=== PATIENT | female | born 1980 | race Caucasian/White ===

== ENCOUNTER 2019-12-08 08:12 | Emergency (ER) | payer BC ==
[2019-12-08 08:16] VITALS: BP 113/67; PULSE 80; TEMP 98.5; BMI 28.1
[2019-12-08] MEDS ORDERED: ONDANSETRON *ODT* 4 MG TABLET SL ONE (08:47)
[2019-12-08] MEDS ORDERED: ONDANSETRON *ODT* 4 MG TABLET ONE (08:52)
--- NOTE | 2019-12-08 08:55 | PDOC ---
History of Present Illness - General Chief Complaint: Respiratory Stated Complaint: NAUSEAS Time Seen by Provider: 12/08/19 08:21 History Source: Patient Exam Limitations: No Limitations - History of Present Illness Initial Comments: 12/08/19 08:50 Pt is a 39 y/o female who presents to the ED with complaint of Right medial thigh throbbing "every 5 seconds" since 5 am and subsequent nausea since 7 am. The patient states that the throbbing has since resolved upon coming to the ED. She denies any recent long travel, OCP or other contraceptive use, cigarette smoking or cancer history. She states that she has also had a URI for the last 2 days. She admits to having a fever yesterday but no fevers today. She does admit to having a slight decrease in her appetite. She has not taken anything for her symptoms. She denies any past medical history of allergies to medications. Past History - Past Medical History Allergies/Adverse Reactions: Allergies Allergy/AdvReac Type Severity Reaction Status Date / Time No Known Allergies Allergy Verified 12/08/19 08:16 Home Medications: Ambulatory Orders NK [No Known Home Medication] 12/08/19 Cardiac Disorders: Yes (MVP) COPD: No GI Disorders: Yes (PANCREATITIS) Disorders: Yes (FIBROIDS, DERMOID) - Psycho Social/Smoking Cessation Hx Smoking Status: No Smoking History: Never smoked Number of Cigarettes Smoked Daily: 0 Review of Systems - Review of Systems Comments:: 12/08/19 08:58 - Review of Systems Able to Perform ROS?: Yes Constitutional: No: Chills, Loss of Appetite, Night Sweats, Weakness, Positive Fever yesterday HEENTM: No: Eye Pain, Vision changes, Ear Pain, Throat Pain, Throat Swelling, Mouth Pain, Difficulty Swallowing Respiratory: No: Shortness of Breath, Wheezing, Sputum Production, Positive Cough Cardiac (ROS): No: Chest Pain, Chest Tightness, Palpitations, Irregular Heart Beat, Edema ABD/GI: No: Vomiting, Abdominal Pain, Diarrhea, Positive: Nausea : No Dysuria, No Hematuria, No Frequency, No Urgency Musculoskeletal: No: Back Pain, Joint Pain, Muscle Weakness, Neck Pain, Positive : Muscle Pain Integumentary: No: Lesions, Rash Neurological: No: Headache, Numbness, Tingling, Weakness, Speech Difficulties *Physical Exam - Vital Signs Last Vital Signs Temp Pulse Resp BP Pulse Ox 98.5 F 80 18 113/67 97 12/08/19 08:13 12/08/19 08:13 12/08/19 08:13 12/08/19 08:13 12/08/19 08:13 - Physical Exam 12/08/19 08:59 - Physical Exam General Appearance: Nourished, Appropriately Dressed, No Distress HEENT: EOMI, Normal Voice, No Pharyngeal Erythema, No Muffled/Hoarse voice, No Tonsillar Exudate, No Tonsillar Erythema, No Nasal Congestion, No Rhinorrhea, Hearing Grossly Normal, TMs Normal, No TM Bulging, No TM Dullness, No TM Erythema Neck: Supple, No Lymphadenopathy (R), No Lymphadenopathy (L), No Rigidity, No Decreased range of motion Respiratory/Chest: Lungs Clear, Normal Breath Sounds. No Respiratory Distress, No Accessory Muscle Use; Wet sounding cough appreciated in the ED. Good air entry bilaterally without any adventitious lung sounds Cardiovascular: Regular Rhythm, Regular Rate, S1, S2 Gastrointestinal/Abdominal: Normal Bowel Sounds, Soft. Non-tender, No Guarding , No Rebound, No Rigidity Musculoskeletal: Normal Inspection. No Decreased Range of Motion; Right medial thigh or diffuse leg without any tenderness to palpation. No discrepancy in leg size compared to the left. No gross bony deformity appreciated. Full range of motion of the right hip, knee and ankle. Extremity: Normal Capillary Refill, Normal Inspection Integumentary: Normal Color, Dry. 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 She is also complaining of mild nausea which is resolving already. Plan: -I have made the patient aware that her muscle aches may be likely to slight dehydration. -Zofran ODT in the ED -Fluid challenge -Will reassess 12/08/19 09:29 The patient states that she is feeling much better after the Zofran and some p.o. fluids in the ED. She has been made aware that her symptoms were likely secondary to muscle cramps from slight dehydration. She should increase her fluids and get plenty of rest. She will follow-up with her primary doctor within 1 to 2 days for repeat evaluation. She understands and agrees with this treatment plan and she is stable for discharge. Discharge - Discharge Information Problems reviewed: Yes Clinical Impression/Diagnosis: Resolved muscle cramps, Nausea alone Condition: Stable Disposition: HOME - Follow up/Referral Referrals: Grazyna Rizvi MD [Primary Care Provider] - 3 days - Patient Discharge Instructions Patient Printed Discharge Instructions: Nocturnal Leg Cramps, DI for Nausea -- Adult Additional Instructions: Drink plenty of fluids and get plenty of rest. You may want to consider eating a banana a day to help with possible electrolyte imbalance. Follow-up with your primary doctor within 1 to 2 days for repeat evaluation. - Post Discharge Activity
== END 2019-12-08 09:45 | disposition home or self-care (01) ==
LOC: JERFT 08:12
DX: R25.2 Cramp and spasm (principal); R11.0 Nausea; I34.1 Nonrheumatic mitral (valve) prolapse; Z86.2 Personal history of diseases of the blood and blood-forming organs and certain disorders involving the immune mechanism
CPT/HCPCS: 99283-25; Q0162

== ENCOUNTER 2020-05-03 03:54 | Emergency (ER) | payer BC ==
[2020-05-03 03:58] VITALS: BP 143/96; PULSE 89; TEMP 98.1; BMI 28.1
--- NOTE | 2020-05-03 04:09 | PDOC ---
History of Present Illness - General Chief Complaint: Redness To Affected Area Stated Complaint: REDNESS TO FINGER Time Seen by Provider: 05/03/20 03:57 - History of Present Illness Initial Comments: 05/03/20 04:05 39 F with no PMH presents to ED with pain and swelling to L middle finger. Pt had manicure done by her mom a few days ago, and today began to notice swelling and throbbing pain to the tip of her middle finger. She denies any drainage. No F/C. No other fingers affected. Past History - Medical History Allergies/Adverse Reactions: Allergies Allergy/AdvReac Type Severity Reaction Status Date / Time No Known Allergies Allergy Verified 12/08/19 08:16 Home Medications: Ambulatory Orders NK [No Known Home Medication] 12/08/19 Cardiac Disorders: Yes (MVP) COPD: No GI Disorders: Yes (PANCREATITIS) Disorders: Yes (FIBROIDS, DERMOID) - Psycho-Social/Smoking History Smoking Status: No Smoking History: Never smoked Number of Cigarettes Smoked Daily: 0 Review of Systems - Review of Systems Comments:: 05/03/20 04:06 "GENERAL/CONSTITUTIONAL: No fever or chills. No weakness. HEAD, EYES, EARS, NOSE AND THROAT: No change in vision. No ear pain or discharge. No sore throat. CARDIOVASCULAR: No chest pain, no shortness of breath, no loss of consciousness RESPIRATORY: No cough, wheezing, or hemoptysis. GASTROINTESTINAL: No nausea, vomiting, diarrhea or constipation. GENITOURINARY: No dysuria, frequency, or change in urination. MUSCULOSKELETAL: No joint or muscle swelling or pain. No neck or back pain. SKIN: + L 3rd digit redness, swelling NEUROLOGIC: No vertigo, no change in strength/sensation. ENDOCRINE: No increased thirst. No abnormal weight change. HEMATOLOGIC/LYMPHATIC: No anemia, easy bleeding, or history of blood clots. ALLERGIC/IMMUNOLOGIC: No hives or skin allergy. *Physical Exam - Vital Signs Last Vital Signs Temp Pulse Resp BP Pulse Ox 98.1 F 89 16 143/96 99 05/03/20 03:55 05/03/20 03:55 05/03/20 03:55 05/03/20 03:55 05/03/20 03:55 - Physical Exam 05/03/20 04:06 "GENERAL: Awake, alert, and fully oriented, in no acute distress. HEAD: No signs of trauma EYES: PERRLA, EOMI, sclera anicteric, conjunctiva clear ENT: Auricles normal inspection, hearing grossly normal, nares patent, oropharynx clear without exudates. Moist mucosa NECK: Nontender, no stepoffs, Normal ROM, supple, no lymphadenopathy, JVD, or m asses LUNGS: Breath sounds equal, clear to auscultation bilaterally. No wheezes, and no crackles HEART: Regular rate and rhythm, normal S1 and S2, no murmurs, rubs or gallops ABDOMEN: Soft, nontender, normoactive bowel sounds. No guarding, no rebound. No masses EXTREMITIES: + paronychia to lateral edge of L 3rd fingernail, no abscess NEUROLOGICAL: Cranial nerves II through XII intact. 5/5 strength and sensation in all extremities, Normal speech, normal gait, normal cerebellar function SKIN: Warm, Dry, normal turgor, no rashes or lesions noted. Medical Decision Making - Medical Decision Making 05/03/20 04:08 39 F with paronychia. No drainable abscess at this time - DC with keflex Pt is well appearing, with normal vitals. Clinically stable for DC at this time. I discussed the physical exam findings, ancillary test results and final diagnoses with the patient. I answered all of the patient's questions. The patient was satisfied with the care received and felt comfortable with the discharge plan and treatment plan. The patient agrees to follow up with the primary care physician within 24-72 hours. Please note this patient was evaluated during the COVID-19 crisis with the presidential Mei Act Declaration and the [place] governks executive order number 202. He/she was evaluated and clinical decisions were made relative to he [facility] resources as well as clinical picture during a pandemic crisis situation. Discharge - Discharge Information Problems reviewed: Yes Clinical Impression/Diagnosis: Paronychia of finger of left hand Condition: Stable Disposition: HOME - Follow up/Referral - Patient Discharge Instructions Patient Printed Discharge Instructions: DI for Paronychia Additional Instructions: Take the antibiotics as prescribed. If you notice worsening redness, swelling, fevers, or any other concerning symptoms, return to the ER immediately. - Post Discharge Activity
[2020-05-03] MEDS ORDERED: CEPHALEXIN MONOHYDRATE 500 MG CAPSULE (UD) PO ONE (04:10)
[2020-05-03] MEDS ORDERED: CEPHALEXIN MONOHYDRATE 500 MG CAPSULE (UD) ONE (04:12)
== END 2020-05-03 04:15 | disposition home or self-care (01) ==
LOC: FER 03:54
DX: L03.012 Cellulitis of left finger (principal)
CPT/HCPCS: 99283-25

== ENCOUNTER 2020-07-08 15:41 | Emergency (ER) | payer BC ==
--- NOTE | 2020-07-08 15:49 | PDOC ---
Rapid Medical Evaluation Time Seen by Provider: 07/08/20 15:46 Medical Evaluation: Allergies Allergy/AdvReac Type Severity Reaction Status Date / Time No Known Allergies Allergy Verified 12/08/19 08:16 07/08/20 15:47 I performed a brief in-person evaluation of this patient. Pt is a 39 y/o female with RLE pain and tightness for the last 2 weeks. The patient was recently diagnosed with DM and was to start metformin and her Hgb A1C was 10. 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 She denies any OCPs or recent long travel. Pertinent physical exam findings: Mild R calf tenderness, no size discrepancy, no sob I have ordered the following: RLE doppler Patient to proceed to ED for further evaluation. Discharge Disposition - Diagnosis Right calf pain - Referrals - Patient Instructions - Post Discharge Activity
[2020-07-08 15:50] VITALS: BP 170/80; PULSE 103; TEMP 98.7; BMI 26.9
--- NOTE | 2020-07-08 16:18 | PDOC ---
History of Present Illness - General Chief Complaint: Pain Stated Complaint: RT LEG CALF PAIN (TIGHTNESS) Time Seen by Provider: 07/08/20 15:46 History Source: Patient - History of Present Illness Occurred: reports: other Severity: Yes: mild Lower Extremity Pain Location: right: leg Past History - Medical History Allergies/Adverse Reactions: Allergies Allergy/AdvReac Type Severity Reaction Status Date / Time No Known Allergies Allergy Verified 07/08/20 15:50 Home Medications: Ambulatory Orders Cephalexin Monohydrate [Keflex -] 500 mg PO Q6H 5 Days #20 capsule 05/03/20 Cardiac Disorders: Yes (MVP) COPD: No Diabetes: Yes GI Disorders: Yes (PANCREATITIS) Disorders: Yes (FIBROIDS, DERMOID) - Reproductive History Is Patient Now?: No - Psycho-Social/Smoking History Smoking Status: No Smoking History: Never smoked Number of Cigarettes Smoked Daily: 0 Review of Systems - Review of Systems Constitutional: No: Chills, Fever Respiratory: No: Shortness of Breath Cardiac (ROS): No: Chest Pain, Palpitations *Physical Exam - Vital Signs Last Vital Signs Temp Pulse Resp BP Pulse Ox 98.7 F 103 H 18 170/80 99 07/08/20 15:44 07/08/20 15:44 07/08/20 15:44 07/08/20 15:44 07/08/20 15:44 - Physical Exam General Appearance: Yes: Appropriately Dressed. No: Apparent Distress HEENT: positive: Normal Voice Neck: positive: Supple Extremity: positive: Normal Inspection. negative: Tender, Swelling Integumentary: positive: Dry, Warm Neurologic: positive: Fully Oriented, Alert, Normal Mood/Affect Medical Decision Making - Medical Decision Making 07/08/20 16:12 39-year-old female with recent diagnosis of diabetes, started on metformin but has not taken meds over fear of side effects, states she prefers to exercise and diet and has lost 16 pounds in the past 3 weeks. States after she started exercising, noticed intermittent pain of right calf only and now concerned for possible blood clot. Able to ambulate without much difficulty. No chest pain shortness of breath or palpitations see exam RLE pain, m/l MSK, recent exercise may play a role, less likely DVT given duration but will check doppler Anticipate dc w/ OTC meds prn and f/u with PMD Patient counseled on compliance with metformin for her recent diagnosis of diabetes and discuss potential side effects with her PMD 07/08/20 17:40 US neg for DVT. HR normalized to 86 with no intervention. Stable for dc to f/u with PMD as needed Discharge - Discharge Information Problems reviewed: Yes Clinical Impression/Diagnosis: Right calf pain Condition: Good Disposition: HOME - Follow up/Referral Referrals: Mounika Peace MD [Primary Care Provider] - - Patient Discharge Instructions Patient Printed Discharge Instructions: DI for Leg Pain Additional Instructions: Your ultrasound was negative for blood clot The cause of your calf pain might be muscular due to recent exercise. Take Motrin or Tylenol for pain as needed and follow-up with your PMD - Post Discharge Activity
== END 2020-07-08 18:10 | disposition home or self-care (01) ==
LOC: JER 15:41
DX: M79.661 Pain in right lower leg (principal)
CPT/HCPCS: 93971-TC; 99284-25

== ENCOUNTER 2020-12-27 19:24 | Emergency (ER) | payer BC ==
[2020-12-27] MEDS ORDERED: IBUPROFEN 600 MG TABLET (FP) PO ONE ×2 (20:07→20:08)
[2020-12-27 20:25] LABS: HEMATOCRIT 38.8 % (32.4-45.2); HEMOGLOBIN 12.8 GM/dl (10.7-15.3); MCH 26.8 pg (25.7-33.7); MCHC 32.9 g/dl (32.0-36.0); MEAN CELL VOLUME 81.5 fl (80-96); MEAN PLT VOLUME 7.6 fl (7.5-11.1); PLATELET COUNT 473 K/MM3 (134-434); RBC 4.76 M/mm3 (3.60-5.2); RDW 13.4 % (11.6-15.6); WHITE BLOOD COUNT 10.3 K/mm3 (4.0-10.8)
[2020-12-27 20:30] VITALS: TEMP 99; BMI 25.8
[2020-12-27 20:34] LABS: ADD RBC MORPHOLOGY NO
[2020-12-27 20:46] LABS: ALBUMIN 2.8 g/dl (3.4-5.0); BILIRUBIN,TOTAL 0.4 mg/dl (0.2-1); CALCIUM 8.7 mg/dl (8.5-10); CREATININE 0.5 mg/dl (0.55-1.3); POTASSIUM 3.7 mmol/L (3.5-5.1); TOT PROT 5.7 g/dl (6.4-8.2)
[2020-12-27] MEDS ORDERED: INSULIN REGULAR HUMAN 100 UNITS/ML *VIAL SQ ONE ×2 (20:56→21:41)
[2020-12-27 20:59] LABS: PLATELET ESTIMATE SLT INCREASE
[2020-12-27] MEDS ORDERED: INSULIN REGULAR HUMAN 100 UNITS/ML *VIAL ONE ×2 (21:00→21:44)
[2020-12-27 21:07] LABS: ERYTHROCYTE SEDIMENTATION RATE 12 mm/hr (0-20)
[2020-12-27 21:44] LABS: N-TERMINAL BNP 37.1 pg/ml (5-125)
[2020-12-27 21:45] VITALS: BP 115/62; PULSE 88
== END 2020-12-27 21:53 | disposition home or self-care (01) ==
LOC: FER 19:24
PROC: 3E023GC Introduction of Other Therapeutic Substance into Muscle, Percutaneous Approach (ICD-10-PCS; principal; 2020-12-27)
DX: G56.03 Carpal tunnel syndrome, bilateral upper limbs (principal); M19.031 Primary osteoarthritis, right wrist; M19.032 Primary osteoarthritis, left wrist; R60.0 Localized edema
CPT/HCPCS: 36415; 80053; 82962; 83880; 85025; 85651; 86618; 99284-25

== ENCOUNTER 2021-12-02 01:09 | Emergency (ER) | payer BC ==
[2021-12-02] MEDS ORDERED: IBUPROFEN 400 MG TABLET (FP) PO ONE ×2 (01:14→01:21)
[2021-12-02 01:28] VITALS: BP 123/73; PULSE 88; TEMP 99.1; BMI 25.3
== END 2021-12-02 01:29 | disposition home or self-care (01) ==
LOC: FER 01:09
DX: K11.5 Sialolithiasis (principal)
CPT/HCPCS: 99283-25

== ENCOUNTER 2022-08-02 23:42 | Emergency (ER) | payer BC ==
[2022-08-02 23:55] VITALS: BP 138/78; PULSE 100; RESP 17; TEMP 98.3; BMI 25.0
[2022-08-03] MEDS ORDERED: AMPICILLIN NA/SULBACTAM NA 1.5 GM in SODIUM CHLORIDE 100 ML IVPB ONE
[2022-08-03] MEDS ORDERED: AMPICILLIN NA/SULBACTAM NA 1.5 GM VIAL ONE (00:13)
== END 2022-08-03 01:03 | disposition home or self-care (01) ==
LOC: FER 23:42
PROC: 3E033GC Introduction of Other Therapeutic Substance into Peripheral Vein, Percutaneous Approach (ICD-10-PCS; principal; 2022-08-02)
DX: K02.9 Dental caries, unspecified (principal)
CPT/HCPCS: 99284-25

== ENCOUNTER 2022-10-17 20:34 | Emergency (ER) | payer BC ==
[2022-10-17 20:54] VITALS: RESP 18; TEMP 98.3; BMI 25.3
[2022-10-18 01:10] VITALS: BP 118/68; PULSE 94
== END 2022-10-18 01:10 | disposition home or self-care (01) ==
LOC: FER 20:34
DX: U07.1 COVID-19 (principal)
CPT/HCPCS: 0241U-QW; 99283-25